=== PATIENT | male | born 2000 ===

== ENCOUNTER 2024-11-26 08:17 | Outpatient (CLI) | payer BC, SELFPAY | END 2024-11-26 08:18 | disposition home or self-care (01) | PROVIDERS: PCP Emergency Medicine; Visit Provider Emergency Medicine | DX: K21.9 Gastro-esophageal reflux disease without esophagitis (principal); Z13.1 Encounter for screening for diabetes mellitus; Z13.6 Encounter for screening for cardiovascular disorders | CPT/HCPCS: 80061; 82947 ==